=== PATIENT | male | born 1955 | race Caucasian/White ===

== ENCOUNTER → 2016-03-23 | Day surgery (SDC) | payer OTHER ==
[~2016-03-23] MED LIST: *ONDANSETRON 4 MG VIAL PERIprocedural Use ONLY ONE; *RESP: ALBUTEROL 2.5 MG/3 ML NEB (PRN) PERIprocedural Use ONLY NEB ONE; AMPICILLIN/SULBAC 3 GM/NS 100 ML IV SCH; BACITRACIN TOP OINT 15 GM TUBE TOP ONE; GLIM2TAB PO; LIDOCAINE 1%/EPINEPHrine 1:100,000 SOLN 20 ML VIAL INFIL ONE; LISI-515 PO; METF1000 PO; ONDANSETRON HCL 4 MG/2 ML VIAL IV PUSH ONE; OXYMETAZOLINE HCL 0.05% 15 ML NASAL SPRAY NASAL ONE; PROPOFOL 200 MG/20 ML AMP IV ONE; SIMV20TA PO; fentaNYL CITRATE 250 MCG/5 ML AMP ONE
[2016-03-23 05:35] VITALS: BP 121/82; PULSE 74; RESP 20; TEMP 97.7; O2SAT 97
--- NOTE | 2016-03-23 09:40 | EKG ---
Date Performed: 03/23/2016 Time Performed: 06:25:36 PTAGE: 60 years EKG: Sinus rhythm with PAC(s) Left axis deviation Inferior infarct - age undetermined Abnormal ECG NO PREVIOUS TRACING DOCTOR: Nitin Carroll Interpretating Date/Time 03/23/2016 09:36:47
[2016-03-23 11:00] VITALS: BP 157/96; PULSE 81; RESP 18; TEMP 97.7; O2SAT 98
--- NOTE | 2016-03-31 23:54 | MP ---
cc: KRISH KUHN MD DATE OF SURGERY: March 23, 2016 SURGEON: Dr. Krish Kuhn PREOPERATIVE DIAGNOSIS 1. Closed nasal fracture. 2. Nasal septal fracture. 3. Nasal septal hematoma 4. Airway obstruction 5. Hypertrophy of inferior turbinates. POSTOPERATIVE DIAGNOSIS: 1. Closed nasal fracture. 2. Nasal septal fracture. 3. Nasal septal hematoma 4. Airway obstruction 5. Hypertrophy of inferior turbinates. OPERATION PERFORMED 1. Closed repair, nasal bone fracture with stabilization. 2. Open repair nasal septal fracture. 3. Drainage septal hematoma. 4. Submucosal resection of inferior turbinates bilaterally. INDICATIONS: Documented in history and physical. DESCRIPTION OF OPERATION The patient was taken to OR #8 and placed in the supine position. Following induction of general anesthesia and intubation the nose was packed bilaterally with cotton pledgets saturated in 0.05% Oxymetazoline which remained in place for a period of 5 minutes. It was then removed and the nasal septum was injected with a total of 8 mL of 1% Xylocaine with epinephrine, 1:100,000. The packing was then returned to the nose. While this was in place, the closed reduction was completed beginning with the left nasal bone. This was reduced into its natural location with manual pressure, with the nasal bone in the left medial canthus. The fractured nasal bone was heard to audibly reduce into its normal location. The right nasal bone then was addressed. This was reduced using a Donny elevator, placed within the nasal vault. The bone was then pressed out laterally and was also heard to audibly reduce into its natural location. When this was completed, the septal fracture was addressed. A Ridgeley incision was made in the left nasal vestibule and through this incision the mucosa of septum was elevated bilaterally as approximately 3 cm. This allowed for drainage of bilateral septal hematoma and revealed the fractured segments of the quadrangular cartilage, accumulative area of 2 x 3 centimeters was removed, preserving 1.5 cm dorsal and caudal cartilaginous struts. The mucosa was then elevated from the bony septum and it was removed using Xiang Diazton forceps. The maxillary crest was removed using a 6-mm Meggan chisel. The Ridgeley incision was then closed using a running suture of 4-0 chromic and the mucosal layers of septum were approximated to each other with a quilting stitch of 4-0 plain gut. Lastly the inferior turbinates were addressed. These were fractured out medially and stab incisions made along their inferior surfaces. Through these incisions submucosal soft tissue was reduced using a curette and preserving the conchal bone. The remnants of the inferior turbinates then were lateralized to the lateral nasal wall. At this point a medium-sized Imchel splint was placed on the nasal dorsum and held in place. This was held in place with the Mastisol skin adhesive. The nose was then stabilized internally using 8 cm Merocel tampons. These were then filled with lidocaine 1% solution and the procedure was terminated. The patient was then reversed from anesthesia and taken to recovery in good condition. There no complications. Blood loss was 60 mL. MD SULEMA Narvaez/JAMAL /2:23 PM /11:45 PM
== END | disposition home or self-care (01) ==
LOC: HSDC 05:25
PROVIDERS: ATTEND Otolaryngology
DX: S02.2XXA Fracture of nasal bones, initial encounter for closed fracture (principal); J34.3 Hypertrophy of nasal turbinates; S00.33XA Contusion of nose, initial encounter; I10 Essential (primary) hypertension; Y09 Assault by unspecified means
CPT/HCPCS: 00160; 21320; 21336; 30140; 93005; J0295; J2405; J3010; J7613